=== PATIENT | male | born 1985 | race Asian ===

== ENCOUNTER 2018-10-14 12:10 | Emergency (ER) | payer MEDICAID ==
[~2018-10-14] VITALS: Ht 170.2 cm; Wt 70.3 kg
[2018-10-14 12:10] VITALS: BP_SYST 124
--- NOTE | 2018-10-14 12:15 | NUR ---
Patient triaged and placed in waiting room. VSS and patient appears in no acute distress at this time. Accompanied by SELF, awaiting available bed, and MD notified of need for MSE.
--- NOTE | 2018-10-14 13:25 | NUR ---
SEEN AND EVALUATED BY MORENA WALTON IN HALLWAY BED.
[2018-10-14] MEDS ORDERED: LIDOCAINE 1% 10 MG/ML, 20 ML MDV INJ ONE ×2 (13:45→16:45)
[2018-10-14] MEDS ORDERED: AMOXICILLIN/CLAVULANATE POTASSIUM 875 MG TABLET PO ONE (13:45)
[2018-10-14] MEDS ORDERED: IBUPROFEN 800 MG TABLET PO ONE (13:45)
[2018-10-14] MEDS ORDERED: BACITRACIN 1 GM OINT TP ONE (13:45)
--- NOTE | 2018-10-14 14:06 | NUR ---
ER MORENA Blandon examining patient.
--- NOTE | 2018-10-14 14:10 | NUR ---
Pt AAOx4 ambulated intoED c/o pain to L 3rd digit s/p dog bite by sister's dog prior to arrival. Pt reports dog is vaccinated and he is up to date with tetanus shot. No other injuries/complaints per pt/noted. Will continue to monitor.
--- NOTE | 2018-10-14 15:19 | NUR ---
BROUGHT BACK TO BED #8 AND REPORT GIVEN TO YIFAN
--- NOTE | 2018-10-14 15:38 | NUR ---
Verbal order of Lidocaine 1% without epi per PHLEBOTOMIST Jamia
--- NOTE | 2018-10-14 15:39 | NUR ---
MACHINE ERECTOR Jamia at bedside removing L 3rd digit nail bed using sterile technique. Pt tolerated procedure well. Bacitracin applied to site, wrapped in non-adherent dressing with finger splint.
[2018-10-14] MEDS ORDERED: LIDOCAINE 1%, 20 ML MDV 20 ML ONE (15:48)
[2018-10-14 16:06] VITALS: BP_SYST 119
--- NOTE | 2018-10-14 16:06 | NUR ---
Patient given written and verbal discharge instructions and verbalizes understanding. ER SKILLED NURSING FACILITY COUNSELOR Jamia discussed with patient the results and treatment provided. Patient in stable condition. ID arm band removed. Rx of Augmentin, Bacitracin, Motrin given. Patient educated on pain management and to follow up with PMD. Pain Scale 0. Opportunity for questions provided and answered. Medication side effect fact sheet provided.
== END 2018-10-14 16:06 | disposition home or self-care (01) ==
LOC: SED 12:10
DX: S61.313A Laceration without foreign body of left middle finger with damage to nail, initial encounter (principal); W54.0XXA Bitten by dog, initial encounter; Y93.89 Activity, other specified; Y92.89 Other specified places as the place of occurrence of the external cause; Y99.8 Other external cause status
CPT/HCPCS: 11730; 73140; 99284; J2001